=== PATIENT | male | born 1940 | race Caucasian/White ===

== ENCOUNTER → 2016-12-13 | Outpatient (CLI) | payer MEDICARE, OTHER ==
--- NOTE | 2016-12-13 11:08 | RAD ---
Examination: CT of the abdomen pelvis with contrast History: hematuria, right flank pain Comparison: None Technique: Axial CT images of the abdomen and pelvis were performed without contrast. Coronal and sagittal reformats were performed PQRS Compliance Statement: One or more of the following individualized dose reduction techniques were utilized for this examination: 1. Automated exposure control 2. Adjustment of the mA and/or kV according to patient size 3. Use of iterative reconstruction technique Findings: The visualized bibasal lungs grossly appears unremarkable. No evidence of free air identified in the abdomen. The evaluation of the solid organs is limited due to lack of IV contrast. The evaluation of the the bowel is limited due to lack of oral contrast. The visualized noncontrasted liver, spleen, adrenals grossly appears unremarkable. Small hiatal hernia. The visualized pancreas grossly appears unremarkable. The gallbladder is mildly distended. The small bowel is nondilated. Small duodenal diverticulum identified in the second and third portion of the duodenum. Feces and gas noted throughout the colon. The appendix is normal. Feces and gas noted in the colon. Multiple sigmoid colon diverticulosis identified. Moderately enlarged prostate gland. Urinary bladder is mildly distended. There is mild thickened appearance of the wall of the urinary bladder. There is a portion of the urinary bladder extending into the right inguinal canal. Right inguinal hernia is identified containing portion of the urinary bladder Severe aortic atherosclerosis. No evidence of intrarenal collecting system calculus or hydronephrosis. Cystic structure identified in the left kidney with the largest measuring 1 cm likely cysts or cystic lesions. Moderate degenerative changes lumbar spine. Impression: 1. No evidence of intrarenal collecting system calculi or hydronephrosis. 2. Mild thickened appearance of the wall of the urinary bladder, correlate for cystitis. There is a portion of the urinary bladder herniating into the right inguinal hernia. 3. Moderate enlarged prostatomegaly. 4. Scattered sigmoid colon diverticulosis. 5. Small hiatal hernia.
== END | disposition home or self-care (01) ==
LOC: CT 10:34
PROVIDERS: ATTEND Nurse Practitioner Family
DX: K57.30 Diverticulosis of large intestine without perforation or abscess without bleeding (principal); K57.10 Diverticulosis of small intestine without perforation or abscess without bleeding; K44.9 Diaphragmatic hernia without obstruction or gangrene; K40.90 Unilateral inguinal hernia, without obstruction or gangrene, not specified as recurrent; N40.0 Benign prostatic hyperplasia without lower urinary tract symptoms; K82.8 Other specified diseases of gallbladder; I70.0 Atherosclerosis of aorta; N32.89 Other specified disorders of bladder
CPT/HCPCS: 74176

== ENCOUNTER → 2020-05-16 | Outpatient (CLI) | payer MEDICARE ==
--- NOTE | 2020-05-16 12:24 | RAD ---
EXAM: Renal sonogram. HISTORY: Renal insufficiency. TECHNIQUE: Sonographic imaging the kidneys and bladder was performed. COMPARISON: None. FINDINGS: The kidneys are normal in size. There are multiple simple appearing left renal cysts, the l argest of which measures 1.9 cm. There is no hydronephrosis. The post void bladder residual is 28 cc. The bladder wall is thickened. The ureteral jets are not seen during the exam. There is no hydroneph rosis. IMPRESSION: 1. Small simple appearing left renal cysts. IS not routinely recommended for simple cysts. 2. Post void bladder residual of 20 cc. There is bladder wall thickening which may be due to relative under distention, cystitis or chronic outlet obstruction. Electronically signed by: Gaby White MD (05/16/2020 12:21 PM) [id number]
== END ==
LOC: US 10:03
PROVIDERS: ATTEND Internal Medicine Nephrology
DX: N18.30 Chronic kidney disease, stage 3 unspecified (principal); N28.1 Cyst of kidney, acquired
CPT/HCPCS: 76770

== ENCOUNTER → 2020-05-26 | Outpatient (CLI) | payer MEDICARE ==
--- NOTE | 2020-05-26 17:19 | RAD ---
Examination: 2 views of the left hip HISTORY: left hip pain COMPARISON: None available Findings/ impression: Severe joint space loss left hip joint with large osteophyte formation identified in the left femoral head likely severe degenerative changes left hip joint.. Electronically signed by: Prabhakar Coughlin MD (05/26/2020 5:16 PM) [id number]
== END ==
LOC: RAD 15:56
PROVIDERS: ATTEND Family Medicine
DX: M25.752 Osteophyte, left hip (principal)
CPT/HCPCS: 73502